=== PATIENT | female | born 1995 | race Caucasian/White ===

== ENCOUNTER 2023-09-21 11:03 | Outpatient (CLI) | payer OTHER, MEDICAID, SELFPAY | END 2023-09-21 11:04 | disposition home or self-care (01) | PROVIDERS: Visit Provider Registered Nurse | DX: Z01.419 Encounter for gynecological examination (general) (routine) without abnormal findings (principal); N93.9 Abnormal uterine and vaginal bleeding, unspecified; L68.0 Hirsutism; Z13.6 Encounter for screening for cardiovascular disorders; Z86.32 Personal history of gestational diabetes | CPT/HCPCS: 80061; 83498; 84146; 84270; 84402; 84403; 84443 ==

== ENCOUNTER 2023-09-28 09:01 | Outpatient (CLI) | payer OTHER, MEDICAID, SELFPAY ==
--- NOTE | 2023-09-28 09:15 | CRLHL7_ITS ---
For Patients: As a result of the Century Cures Act, medical imaging exams and procedure reports are released immediately into your electronic medical record. You may view this report before your referring provider. If you have questions, please contact your health care provider. INDICATION: ABNORMAL UTERINE AND VAGINAL BLEEDING COMPARISON: none TECHNIQUE: 2D crenshaw scale and color Doppler images were acquired of the pelvis using a transabdominal and transvaginal approach. FINDINGS: Sonographic images demonstrate a normal size and smooth outer contour of the uterus. Uterus measures 10.3 cm in length by 3.9 cm in AP diameter by 5.9 cm in transverse dimension. scar noted. The endometrial lining appears normal and measures 9.5 mm in composite thickness. The right ovary measures 4.5 x 3.4 x 2.3 cm in size and the left ovary measures 4.5 x 2.9 x 3.8 cm. The ovaries demonstrate normal arterial and venous blood flow on color Doppler analysis. There are no suspicious fluid collections within the cul-de-sac. Incidental dominant follicle left ovary measuring 2.4 cm. IMPRESSION: No uterine fibroid or adnexal mass. No excess pelvic free fluid. Endometrial thickness 9.5 millimeters. Dictated by David Lin MD @ 09/28/2023 11:17:44 AM (Electronically Signed)
--- NOTE | 2023-09-28 10:15 | CRLHL7_ITS ---
For Patients: As a result of the Century Cures Act, medical imaging exams and procedure reports are released immediately into your electronic medical record. You may view this report before your referring provider. If you have questions, please contact your health care provider. RIGHT BREAST ULTRASOUND CLINICAL HISTORY: RIGHT breast lump. COMPARISON: 06/03/2018. TECHNIQUE: Real-time ultrasound imaging of the RIGHT breast with imaging documentation. FINDINGS: Targeted RIGHT breast ultrasound performed 7 o`clock 6 cm from the nipple in the area of concern. In this location, there is a heterogeneously hypoechoic solid nodule measuring 2.4 x 1.5 x 3.6 cm. No abnormal vascularity. IMPRESSION: 3.6 cm solid mass RIGHT breast 7 o`clock 6 cm from the nipple, fibroadenoma versus phyllodes. RECOMMENDATIONS: Ultrasound-guided core needle biopsy. Results and recommendations were discussed with the patient at the time of the exam. BI-RADS Category 4: Suspicious A lay language report of this examination will be provided to the patient. Dictated by David Lin MD @ 09/28/2023 10:20:04 AM /Dictated by: David Lin MD @ 09/28/2023 10:20:00 AM (Electronically Signed)
== END 2023-09-28 09:02 | disposition home or self-care (01) ==
LOC: US 09:02
PROVIDERS: Visit Provider Registered Nurse
DX: N93.9 Abnormal uterine and vaginal bleeding, unspecified (principal); R93.89 Abnormal findings on diagnostic imaging of other specified body structures; N63.10 Unspecified lump in the right breast, unspecified quadrant
CPT/HCPCS: 76642; 76830; 76856

== ENCOUNTER 2023-10-08 10:12 | Outpatient (CLI) | payer OTHER, MEDICAID, SELFPAY ==
--- NOTE | 2023-10-08 10:15 | CRLHL7_ITS ---
For Patients: As a result of the Century Cures Act, medical imaging exams and procedure reports are released immediately into your electronic medical record. You may view this report before your referring provider. If you have questions, please contact your health care provider. ULTRASOUND-GUIDED RIGHT BREAST BIOPSY WITH CLIP PLACEMENT INDICATION: Palpable mass RIGHT breast 7 o`clock position 6 cm from the nipple. Reportedly this has been palpable for approximately 5 years. Possible fibroadenoma versus phyllodes tumor. Informed consent was obtained. Benefits and risks were discussed. The patient agreed to proceed. Peabody protocol was followed. TIME-OUT conducted just prior to starting procedure confirmed patient identity, site/side, procedure, patient position, and availability of correct equipment. Pause for cause was performed. Utilizing sterile technique and 1 percent lidocaine for local anesthetic, a 14-gauge Bard biopsy gun was used. Six passes were made into the lesion at the 7 o`clock position 6 cm from the nipple. The 6th pass was required as the 5th pass demonstrated scant material. Subsequently, a biopsy clip was placed. A postprocedure mammogram is pending. IMPRESSION: Technically successful RIGHT breast ultrasound-guided biopsy for solid nodule 7 o`clock position 6 cm from the nipple. The nodule itself measured 2.4 x 1.5 x 3.6 cm. 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 However if this lesion is enlarging, the pathologist suggested further sampling as a phyllodes tumor could not be entirely excluded. Surgical consultation and consideration to surgical excision recommended. Dictated by Mikey Andino MD @ Oct 08 2023 12:04PM Signed by:?Mikey Andino MD @10/08/2023 1:05:55 PM (Electronically Signed)
--- NOTE | 2023-10-08 11:00 | CRLHL7_ITS ---
For Patients: As a result of the Cures Act, medical imaging exams and procedure reports are released immediately into your electronic medical record. You may view this report before your referring provider. If you have questions, please contact your health care provider. POST-BIOPSY RIGHT MAMMOGRAM FOR CLIP PLACEMENT INDICATION: Follow-up RIGHT breast biopsy. Clip placement. TECHNIQUE: CC and MLO views of the RIGHT breast were obtained post-procedure. FINDINGS: Breast Composition: The breast is heterogeneously dense, which may obscure small masses. In the inferior RIGHT breast between the 6 and 7 o`clock position is a well-placed biopsy clip. No architecture distortion. No suspicious microcalcifications. IMPRESSION: Post clip mammogram as described. ACR not applicable Dictated by: Mikey Andino MD @10/08/2023 12:05:56 PM jj/Dictated by: Mikey Andino MD @ 10/08/2023 12:05:00 PM (Electronically Signed)
== END 2023-10-08 10:13 | disposition home or self-care (01) ==
LOC: US 10:13
PROVIDERS: Visit Provider Registered Nurse
DX: N63.10 Unspecified lump in the right breast, unspecified quadrant (principal); D24.1 Benign neoplasm of right breast
CPT/HCPCS: 19083; 77065; 88305; A4648; A4649